=== PATIENT | male | born 1975 | race Caucasian/White ===

== ENCOUNTER 2021-02-20 03:42 | Emergency (ER) | payer OTHER ==
[~2021-02-20 03:42] MED LIST: BUSPIRONE HCL30 MG PO; FLEXERIL10 MG PO; IBUPROFEN800 MG PO; LISINOPRIL-HCT1 EACH PO; ONDANSETRON ODT4 MG PO; ROBAXIN750 MG PO; XANAX1 MG PO; ZOFRAN4 MG PO; ZOLOFT50 M1 PO; ZPAK PO
== END 2021-02-20 04:13 | disposition home or self-care (01) ==
LOC: FER 03:42
DX: M25.531 Pain in right wrist (principal); M25.532 Pain in left wrist; I10 Essential (primary) hypertension
CPT/HCPCS: 96372; 99283

== ENCOUNTER 2021-08-21 06:36 | Emergency (ER) | payer OTHER ==
[2021-08-21] MEDS ORDERED: NAPROXEN500 MG PO (07:29)
== END 2021-08-21 07:36 | disposition home or self-care (01) ==
LOC: FER 06:36
DX: M77.8 Other enthesopathies, not elsewhere classified (principal); Z28.311 Partially vaccinated for COVID-19; X50.9XXA Other and unspecified overexertion or strenuous movements or postures, initial encounter; Y92.89 Other specified places as the place of occurrence of the external cause; Y99.0 Civilian activity done for income or pay
CPT/HCPCS: 73110

== ENCOUNTER 2021-09-14 19:51 | Emergency (ER) | payer OTHER ==
[~2021-09-14 19:51] MED LIST changes: +NAPROXEN500 MG PO
[2021-09-14 22:56] LABS: ALBUMIN 4.5 g/dL (3.4-5.0); BILIRUBIN - TOTAL 0.3 mg/dL (0.2-1.0); BUN/CREAT RATIO (CALC) 20.2 RATIO; CREATININE 1.24 mg/dL (0.67-1.17); GLOBULIN (CALCULATION) 2.4 g/dL; POTASSIUM 4.1 mmol/L (3.5-5.1); TOTAL PROTEIN 6.9 g/dL (6.4-8.2)
[2021-09-14 23:07] LABS: LACTIC ACID 0.6 mmol/L (0.4-1.9)
[2021-09-14 23:11] LABS: BASOPHIL 0.5 % (0-2); EOSINOPHIL 0.2 % (0-5); HCT 39.7 % (42.0-52.0); HGB 13.7 g/dl (13.2-18.0); LYMPHOCYTE 2.2 % (15-48); MCH 32.9 pg (25.0-31.0); MCHC 34.5 g/dL (32.0-36.0); MCV 95.2 fL (78.0-100.0); MPV 9.6 fL (6.0-9.5); NEUTROPHIL 63.6 % (41-80); NRBC 0.5; PLT 156 K/uL (150-400); RBC 4.17 M/uL (4.70-6.00)
[2021-09-14 23:27] LABS: INR 1.06 (0.9-1.2); PROTHROMBIN TIME 13.2 SECONDS (11.8-13.4); PTT 31.1 SECONDS (24.4-34.7)
[2021-09-14 23:27] LABS: WBC > 310.0 K/uL (4.0-10.5)
[2021-09-14 23:51] LABS: TOTAL CELL COUNT 100
[2021-09-15 00:19] LABS: NEUTROPHILS(M) 59 % (41-80)
[2021-09-15 00:20] LABS: LYMPHOCYTE(M) 4 % (15-48)
[2021-09-15 00:21] LABS: BAND 20 % (0-10); METAMYELOCYTE 9; MONOCYTE(M) 8 % (0-12)
[2021-09-15 00:22] LABS: PLATELET ESTIMATE NORMAL; PLATELET MORPHOLOGY NORMAL
[2021-09-15 00:32] LABS: BILIRUBIN NEGATIVE (NEGATIVE); BLOOD 1+ Ery/uL (NEGATIVE); CLARITY CLEAR (CLEAR); COLOR YELLOW (YELLOW); GLUCOSE (U) NORMAL (NORMAL); LEUKOCYTES NEGATIVE Leu/uL (NEGATIVE); NITRITE NEGATIVE (NEGATIVE); PROTEIN NEGATIVE (NEGATIVE); SPECIFIC GRAVITY <=1.005 (1.001-1.030); UROBILINOGEN 0.2 mg/dL (0.2-1.0)
[2021-09-15 00:41] LABS: URINARY RBC RARE
== END 2021-09-15 05:28 | disposition other institution (70) ==
LOC: FER 19:51
PROVIDERS: Emergency Medicine; Nurse Practitioner Family
DX: D75.1 Secondary polycythemia (principal); Z87.891 Personal history of nicotine dependence
CPT/HCPCS: 36415; 70450; 80053; 81001; 83605; 83615; 84145; 85610; 85730; 87040; 87077; J2405; J7030

== ENCOUNTER 2021-10-23 08:17 | Emergency (ER) | payer OTHER ==
[2021-10-23 09:08] LABS: BILIRUBIN NEGATIVE (NEGATIVE); BLOOD 1+ Ery/uL (NEGATIVE); CLARITY CLEAR (CLEAR); COLOR YELLOW (YELLOW); GLUCOSE (U) NORMAL (NORMAL); LEUKOCYTES NEGATIVE Leu/uL (NEGATIVE); NITRITE NEGATIVE (NEGATIVE); PROTEIN NEGATIVE (NEGATIVE); UROBILINOGEN 0.2 mg/dL (0.2-1.0)
[2021-10-23 09:16] LABS: BACTERIA TRACE; URINARY RBC RARE
[2021-10-23 09:45] LABS: BASOPHIL 0.4 % (0-2); EOSINOPHIL 1.5 % (0-5); HGB 11.5 g/dl (13.2-18.0); LYMPHOCYTE 39.4 % (15-48); MCH 32.2 pg (25.0-31.0); MCHC 32.9 g/dL (32.0-36.0); MONOCYTE 17.8 % (0-12); MPV 10.2 fL (6.0-9.5); NEUTROPHIL 40.5 % (41-80); NRBC 0; PLT 82 K/uL (150-400); RBC 3.57 M/uL (4.70-6.00); RDW 18.5 % (11.5-14.0); WBC 2.6 K/uL (4.0-10.5)
[2021-10-23 10:06] LABS: ALBUMIN 4.1 g/dL (3.4-5.0); BILIRUBIN - TOTAL 0.5 mg/dL (0.2-1.0); BUN/CREAT RATIO (CALC) 14.4 RATIO; CREATININE 1.04 mg/dL (0.67-1.17); GLOBULIN (CALCULATION) 2.5 g/dL; MAGNESIUM 1.8 mg/dL (1.8-2.4); POTASSIUM 3.9 mmol/L (3.5-5.1); TOTAL PROTEIN 6.6 g/dL (6.4-8.2)
== END 2021-10-23 10:50 | disposition home or self-care (01) ==
LOC: FER 08:17
PROVIDERS: Emergency Medicine
DX: D72.819 Decreased white blood cell count, unspecified (principal); D69.6 Thrombocytopenia, unspecified; Z88.0 Allergy status to penicillin; Z85.6 Personal history of leukemia
CPT/HCPCS: 36415; 71046; 80053; 81001; 83605; 83735; 84145; 85025

== ENCOUNTER 2021-11-20 14:41 | Emergency (ER) | payer OTHER | END 2021-11-20 15:31 | disposition left against medical advice (07) | LOC: FER 14:41 | DX: Z53.21 Procedure and treatment not carried out due to patient leaving prior to being seen by health care provider (principal) ==

== ENCOUNTER 2021-12-31 09:36 | Emergency (ER) | payer OTHER ==
[2021-12-31 10:58] LABS: BASOPHIL 0.4 % (0-2); EOSINOPHIL 4.1 % (0-5); HCT 41.1 % (42.0-52.0); HGB 13.6 g/dl (13.2-18.0); LYMPHOCYTE 33.9 % (15-48); MCH 33.1 pg (25.0-31.0); MCHC 33.1 g/dL (32.0-36.0); MONOCYTE 9.3 % (0-12); MPV 10.6 fL (6.0-9.5); NEUTROPHIL 51.4 % (41-80); NRBC 0; PLT 154 K/uL (150-400); RBC 4.11 M/uL (4.70-6.00); RDW 13.2 % (11.5-14.0); WBC 4.6 K/uL (4.0-10.5)
[2021-12-31 11:34] LABS: CORONAVIRUS 2019 SARS-COV-2 NEGATIVE (NEGATIVE); INFLUENZA A NAA NEGATIVE (NEGATIVE)
[2021-12-31 11:54] LABS: ALBUMIN 4.2 g/dL (3.4-5.0); BILIRUBIN - TOTAL 0.4 mg/dL (0.2-1.0); BUN/CREAT RATIO (CALC) 12.5 RATIO; CREATININE 1.12 mg/dL (0.67-1.17); GLOBULIN (CALCULATION) 2.5 g/dL; POTASSIUM 3.7 mmol/L (3.5-5.1); TOTAL PROTEIN 6.7 g/dL (6.4-8.2)
[2021-12-31 11:56] LABS: LACTIC ACID 1.8 mmol/L (0.4-1.9)
== END 2021-12-31 12:20 | disposition home or self-care (01) ==
LOC: FER 09:36
PROVIDERS: Emergency Medicine
DX: B34.9 Viral infection, unspecified (principal); R07.89 Other chest pain; R09.1 Pleurisy; I10 Essential (primary) hypertension; Z20.822 Contact with and (suspected) exposure to COVID-19; Z87.891 Personal history of nicotine dependence
CPT/HCPCS: 36415; 71045; 80053; 83605; 84484; 85025; 85379; 93005; U0002

== ENCOUNTER 2022-01-04 06:21 | Emergency (ER) | payer OTHER ==
[2022-01-04 07:37] LABS: BASOPHIL 0.2 % (0-2); EOSINOPHIL 3.8 % (0-5); HGB 14.2 g/dl (13.2-18.0); LYMPHOCYTE 33.9 % (15-48); MCH 32.6 pg (25.0-31.0); MCV 98.9 fL (78.0-100.0); MONOCYTE 8.5 % (0-12); MPV 10.7 fL (6.0-9.5); NEUTROPHIL 53.4 % (41-80); NRBC 0; PLT 142 K/uL (150-400); RBC 4.35 M/uL (4.70-6.00); RDW 12.8 % (11.5-14.0); WBC 5.5 K/uL (4.0-10.5)
[2022-01-04 07:48] LABS: INR 0.99 (0.9-1.2); PROTHROMBIN TIME 12.8 SECONDS (11.9-13.9); PTT 30.3 SECONDS (24.9-34.6)
[2022-01-04 07:58] LABS: BILIRUBIN - TOTAL 0.4 mg/dL (0.2-1.0); BUN/CREAT RATIO (CALC) 16.2 RATIO; CREATININE 1.11 mg/dL (0.67-1.17); GLOBULIN (CALCULATION) 2.6 g/dL; POTASSIUM 3.8 mmol/L (3.5-5.1); TOTAL PROTEIN 6.6 g/dL (6.4-8.2)
[2022-01-04 08:11] LABS: CORONAVIRUS 2019 SARS-COV-2 NEGATIVE (NEGATIVE); INFLUENZA A NAA NEGATIVE (NEGATIVE)
[2022-01-04] MEDS ORDERED: MEDROL 4MG DOSEP4 MG PO (08:19)
== END 2022-01-04 09:26 | disposition home or self-care (01) ==
LOC: FER 06:21
PROVIDERS: Internal Medicine
DX: R07.89 Other chest pain (principal); R53.81 Other malaise; R53.83 Other fatigue; I10 Essential (primary) hypertension; Z20.822 Contact with and (suspected) exposure to COVID-19; Z28.310 Unvaccinated for COVID-19; Z87.891 Personal history of nicotine dependence
CPT/HCPCS: 36415; 71045; 80053; 83880; 84145; 84484; 85025; 85610; 85730; 93005; J1100; U0002